=== PATIENT | male | born 1980 | race Two or more races ===

== ENCOUNTER → 2017-03-24 | Outpatient (CLI) | payer OTHER ==
--- NOTE | 2017-03-24 14:20 | KCIC ---
EXT NON VASC LTD LEFT History: Left groin pain Comparison: None. Findings: Multiple sonographic images of the left groin and scrotal region are submitted. There are some nonspecific lymph nodes, not considered significantly enlarged based on short axis dimension. Largest of these measures about 0.5 cm short axis dimension. No hernia is demonstrated. There is left varicocele which reportedly is in area of pain. Impression: 1. There is a left varicocele, reportedly in the area of patient's pain. There are some small nonspecific nodes, not considered significantly enlarged. Electronically signed by: Luis Osei MD (03/24/2017 2:17 PM) [id number]
== END | disposition home or self-care (01) ==
LOC: KCIC US 13:22
PROVIDERS: ATTEND Internal Medicine
DX: I86.1 Scrotal varices (principal)
CPT/HCPCS: 76882